=== PATIENT | female | born 1955 | race Caucasian/White ===

== ENCOUNTER 2016-07-04 03:27 | Inpatient (IN) | payer MEDICARE, OTHER ==
--- NOTE | ~2016-07-04 | CN ---
Consultation Report [facility] [address]. [address] NAME: REGLA PAVON : 57 STATUS : ADM IN [facility]#: [id number] AGE: 61 ADM/REG DATE : 07/04/16 MR#: [id number] REPORT SERV DATE: 07/07/16 DICTATED BY: LONNY MEJIA DATE: 07/06/16 REPORT STATUS : Draft TRANSCRIBED BY: MODL DATE: 07/06/16 INFECTIOUS DISEASE CONSULT DATE OF CONSULTATION: REASON FOR CONSULT: Antibiotic treatment. HISTORY OF PRESENT ILLNESS: 61 years old white lady with cardiac transplant in 2012, on Prograf, CellCept, and Bactrim who was admitted for acute onset of vomiting followed by chills, fever, and history of recurrent episodes of dry cough. In 2012, she had a cardiac transplant at [place]. It was very difficult to get her off the ventilator postoperatively. She then had an episode of aspiration after finally she was taken off the vent who ended up having a tracheostomy. Since then, she has had problems occasionally with swallowing. Initially, she also had some dysphonia. Remotely, she had one of the salivary glands removed. She stayed near [place] for several months and she was in and out of the hospital. In September 2012, six months after the transplant, she developed a "sepsis." She states that they could never figure out what caused it, but they thought it was of kidney origin. She ended up getting 6 weeks of antibiotic intravenously. Ever since, she has had recurrent episodes of dry coughing, bronchitis, and pneumonia, mostly treated by Dr. Jon Wu, her PCP. She does not follow with ID or pulmonology, and she goes to the transplant team about twice a year. Around or 28 of June, she started having dry cough again and some wheezing. She felt "bad," but she did not describe any runny nose, runny eyes, nasal congestion. For mother's day, she went to her brothers where they had dinner, spaghetti, and cake. After she got home, she started vomiting the food. She does not think she choked during that. Soon after, she started having chills and fever so she came to the hospital pretty quickly. Here, she had a lot of problems with coughing. She was thought to have a pneumoniae. WBC was high at 20. Creatinine was high at 1.5. Lactic acid was 1.1. BNP 35. Procalcitonin was not elevated. She was started on Rocephin and azithromycin. According to the patient, she did not have shortness of breath, chest pain. She does not think she aspirated. She had no abdominal pain. No constipation or diarrhea. She did notice that she voids frequently even before she came in, but she had no dysuria. Here in the hospital according to the notes she had wheezing and coughing yesterday. She was started on nebulizer treatments that helped quite a bit. She has been afebrile here. She has some tachycardia. The cough is better. She has occasional acid reflux, but she does not think that happened on Mother's Day. She did have a history of occasional episodes of choking if she does not chew and swallow carefully. Admission blood cultures were negative. Consultation Report [place] [id number] [facility] [place]. [address] NAME: REGLA PAVON : 57 STATUS : ADM IN [facility]#: [id number] AGE: 61 ADM/REG DATE : 07/04/16 MR#: [id number] REPORT SERV DATE: 07/07/16 DICTATED BY: LONNY MEJIA DATE: 07/06/16 REPORT STATUS : Draft TRANSCRIBED BY: KIRAN DATE: 07/06/16 Urinalysis not suggestive of an infection. Influenza screening negative. Today, WBC is 8, hemoglobin 11, creatinine 1.0, liver enzymes within normal limits. Yesterday, she had CT of the chest, abdomen, and pelvis without any contrast. There were no lung infiltrates. There is some renal scarring. I noticed that the whole stomach seemed to be filled with what might be food, so more solid contents. PAST MEDICAL HISTORY: As I mentioned above plus scoliosis, history of diverticular bleeding, history of cholecystectomy, hysterectomy, and salivary gland resection. FAMILY HISTORY: Heart disease and diabetes. SOCIAL HISTORY: She is . She does not work. She has a granddaughter with bronchiectasis who gets recurrent infections. She has no dogs, although her brother whom she saw on Mother's Day had two dogs. She did pet dogs, but she states she washed her hands before eating. No other sick contacts. Nobody else with vomiting or acute coughing. ALLERGIES: CIPRO CAUSED A RASH, ALSO TAPE. MEDICATIONS ON ADMISSION: Aspirin, lisinopril, magnesium, omeprazole, mycophenolate, tacrolimus, and Bactrim 1 double strength tablet every 3rd day. She has been on omeprazole since the transplant, but she does not know where she still needs it. PHYSICAL EXAMINATION: GENERAL: On exam, she is alert and awake. I have not heard her cough or wheeze while in the room with me. HEENT: Sclerae are white, a piece of darker color. No oral mucosa lesions that I can see. LUNGS: No wheezing, but I hear more of an erupt-type sound bilaterally especially in the lower lung [place]. HEART: Regular rhythm. No murmurs. ABDOMEN: Soft, nontender. SKIN: Without obvious rash. Feet without lesions. LYMPH NODES: I did not identify any preauricular, submandibular, or cervical adenopathy. ASSESSMENT AND PLAN: The patient with history of cardiac transplant on immunosuppressive medications who has a history of recurrent episodes of cough. She was admitted for dry cough of 4 to 5 days duration and then acute onset of vomiting after dinner, followed by chills and fever. She is currently afebrile. WBC which was high on admission is normal. Procalcitonin was not elevated. The cough is better with nebulizer treatments. DIFFERENTIAL DIAGNOSIS: I am concerned about possible aspiration episodes. She describes occasional swallowing difficulty since she had a tracheostomy in 2012. She does not use artificial saliva all the time. Also, I noticed on the CT scan that her stomach seem to be full with food, but I do not know how soon after she ate that the CAT scan was done. She does not describe acute acid reflux when she had a prior history of that, so this bring the question about if there is any problem with gastric emptying but she does not seem to Consultation Report [address] [place]. [address] NAME: REGLA PAVON : 57 STATUS : ADM IN [facility]#: [id number] AGE: 61 ADM/REG DATE : 07/04/16 MR#: [id number] REPORT SERV DATE: 07/07/16 DICTATED BY: LONNY MEJIA DATE: 07/06/16 REPORT STATUS : Draft TRANSCRIBED BY: KIRAN DATE: 07/06/16 describe that. Also on the differential diagnosis would be a viral infection. The bacterial bronchitis seems less likely. I discussed with the patient, and I suggested to have dental care, to use mouth moisturizer when eating. I suggested a swallow evaluation. If she has problems in the future may need to have gastric emptying evaluation. We will screen for RSV pneumococcus. She is on Rocephin, but I think if she continues to improve I would stop that. I discussed with the patient and her . She had the opportunity to ask questions. I reviewed the chart and computer records, and reviewed the CT scan. PC/MODL Lonny Mejia M.D. / [id number] CC: MD Jordi Julien M.D.
--- NOTE | ~2016-07-04 | DS ---
Discharge Summary [id number] [place]. [address] NAME: REGLA PAVON : 57 STATUS : DIS IN PAT#: [id number] AGE: 61 ADM/REG DATE : 07/04/16 MR#: [id number] REPORT SERV DATE: 07/08/16 DICTATED BY: JOJO KNIGHT DATE: 07/07/16 REPORT STATUS : Draft TRANSCRIBED BY: KIRAN DATE: 07/07/16 ADMISSION DATE: 07/04/2016 DISCHARGE DATE: 07/07/2016 CONSULTATION: 1. Infectious Disease, Dr. Lonny Bustillo. 2. Cardiology, Dr. Chacko. INVASIVE PROCEDURE: None. DISCHARGE DIAGNOSES: 1. Respiratory syncytial virus bronchitis. 2. History of cardiac transplant, on chronic immunosuppression therapy. 3. History of atrial fibrillation with remote history of cardiac ablation. 4. Steroid-induced diabetes mellitus. 5. Acute kidney injury. 6. Hypertension. DISCHARGE CONDITION: Stable. HISTORY OF PRESENT ILLNESS: For detailed HPI, please make reference to Dr. Ashu Sesay's dictation on 07/04/2016. In brief; this is a 61-year-old female with medical history of cardiac transplant in 2012 after a nonischemic cardiomyopathy with ejection fraction of 20%, on chronic immunosuppression therapy who presented to the emergency room with complaints of nausea, vomiting, cough, fever, and chills. In the ER, was found to have a temperature of 101.3, pulse of 133 beats per minute, blood pressure of 134/66, respiratory rate of 23, saturating 98% on room air. Physical exam was significant for diffuse inspiratory and expiratory wheezes. LABORATORY DATA: White blood cell count of 20.3, hemoglobin of 12, hematocrit of 37. Sodium of 139, creatinine of 1.54. Lactic acid of 1.1. Chest x-ray showed no acute cardiopulmonary process. EKG shows sinus tachycardia. An assessment of sepsis secondary to possible pneumonia was made in the ER. The patient was admitted to the Hospitalist Service for further evaluation. HOSPITAL COURSE: 1. Respiratory syncytial virus bronchitis. Given the constellation of the patient's symptoms of cough, fever, wheezing, and leukocytosis, an empiric diagnosis of sepsis was made with possible pneumonia. The patient was started on broad-spectrum antibiotics with IV ceftriaxone and azithromycin. However, the patient's procalcitonin returned less than 0.05. Chest x-ray showed no infiltrate, and a CT of the chest shows no evidence of pneumonia. Hence at this point, pneumonia as a cause of the patient's sepsis was ruled out. Infectious Disease was consulted and recommended RSV antigen test which returned back positive. A definitive diagnosis of RSV bronchitis was made. IV antibiotics were discontinued. The patient's blood cultures remained negative. The patient's white blood cell count trended down from 20,000 back to 8000 prior to Discharge Summary [address] [address] NAME: REGLA PAVON : 57 STATUS : DIS IN PAT#: [id number] AGE: 61 ADM/REG DATE : 07/04/16 MR#: [id number] REPORT SERV DATE: 07/08/16 DICTATED BY: JOJO KNIGHT DATE: 07/07/16 REPORT STATUS : Draft TRANSCRIBED BY: KIRAN DATE: 07/07/16 discharge. The patient had no further episodes of fever. The patient was discharged to continue albuterol inhaler, Tessalon Perles, and Robitussin for symptomatic relief. The patient was ready to follow up with her primary care physician within one week of discharge. 2. History of cardiac transplant, on chronic immunosuppression therapy. The patient underwent cardiac transplant in 2012 at [facility] following a diagnosis of nonischemic cardiomyopathy with an EF of 20%. The patient reports that she continues to follow up with [facility]. Local continuous mining operator is Dr. Chacko. Dr. Chacko was informed of patient's admission, and he came to the bedside to follow up the patient during the course of this admission. The patient's Prograf and mycophenolate were continued throughout the course of this admission. No chest pain. No evidence of acute decompensated heart failure. The patient remained euvolemic throughout the course of this admission. The patient was advised to follow up with Dr. Chacko within two weeks of discharge. 3. Acute kidney injury. The patient's creatinine was 1.5. Etiology due to prerenal azotemia following several episodes of nausea and vomiting prior to admission. The patient was started on gentle IV fluids. The patient's creatinine trended down back to baseline of 1.0 prior to discharge. The patient's creatinine remained stable. At the time of discharge, the patient was asked to follow up with primary care physician as an outpatient. DISCHARGE MEDICATIONS: 1. Albuterol inhaler one puff q.4 to 6 hours p.r.n. 2. Tessalon Perles 200 mg p.o. t.i.d. 3. Robitussin DM 1 tablespoon every four to six hours p.r.n. 4. Aspirin 81 mg p.o. daily. 5. Lisinopril 5 mg p.o. daily. 6. Omeprazole 20 mg p.o. daily. 7. Bactrim DS 1 tab three times a week on Monday, Monday, Monday. 8. Tacrolimus 1.5 mg p.o. daily. 9. Tacrolimus 1 mg p.o. at bedtime. 10.Mycophenolate 720 mg p.o. b.i.d. 11.Vitamin D 2000 units at bedtime. DISCHARGE ACTIVITIES: As tolerated. DISCHARGE FOLLOWUP: 1. Follow up with primary care physician within one week of discharge. 2. Follow up with cardiology, Dr. Chacko within two weeks of discharge. DISCHARGE DIET: Low-salt diet. IOO/MODL Jojo Tristan Discharge Summary [address] [address] NAME: REGLA PAVON : 57 STATUS : DIS IN PAT#: [id number] AGE: 61 ADM/REG DATE : 07/04/16 MR#: [id number] REPORT SERV DATE: 07/08/16 DICTATED BY: JOJO KNIGHT DATE: 07/07/16 REPORT STATUS : Draft TRANSCRIBED BY: MODL DATE: 07/07/16 MD Rosio / [id number] CC: Mariel Marroquin M.D. Kevin P Luce, M.D. Paul Cornea, M.D.
--- NOTE | ~2016-07-04 | HP ---
History And Physical [place] [address] [facility]. [address] NAME: REGLA PAVON : 57 STATUS : REG ER PAT#: [id number] AGE: 61 ADM/REG DATE : 07/04/16 MR#: [id number] REPORT SERV DATE: 07/04/16 DICTATED BY: JOCELINE PERALTA DATE: 07/04/16 REPORT STATUS : Draft TRANSCRIBED BY: MODAna DATE: 07/04/16 DATE OF ADMISSION: 07/04/2016 CHIEF COMPLAINT: A 61-year-old female presenting with shortness of breath and cough, history of cardiac transplant. The patient's history was obtained through careful interview with the patient and her coupled with review of [facility] medical records. The patient around 06/27/2016 or 06/28/2016 began to develop a nonproductive cough and "felt bad." She describes shortness of breath characterized by dyspnea on exertion and increasing pleuritic like chest discomfort. This is felt at the base of her lungs and in the middle of her chest, an aching quality, 4 to 5/10 severity, exacerbated by coughing. She describes fevers, chills, nausea, or vomiting. Also urinary frequency, but no dysuria. No sinus drainage. She has had a "tremendous" headache. No diarrhea. REVIEW OF SYSTEMS: Otherwise, a 14-point review of systems was obtained and was negative. PAST MEDICAL HISTORY: 1. Cardiac transplant in 2012 after a nonischemic cardiomyopathy with ejection fraction of 20% followed locally by Dr. Chacko and at [facility] by Dr. Zia Joy. 2. Levoscoliosis. 3. Atrial fibrillation, status post cardiac ablation. 4. 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 5. Diverticular bleed, seen by Dr. Jeffers, light cleaner. 6. Hypertension. ALLERGIES: CIPRO. PAST SURGICAL HISTORY: 1. Cardiac transplant in 2012. 2. Hysterectomy. 3. Cholecystectomy. 4. Cardiac ablation. 5. Salivary gland surgery. SOCIAL HISTORY: No tobacco abuse. Occasional alcohol use. She is . Has children. FAMILY HISTORY: Mother and father both with heart disease. CURRENT MEDICATIONS: Include aspirin 81 mg p.o. daily, lisinopril 5 mg p.o. daily, magnesium, Prilosec 20 mg p.o. daily, Bactrim double strength p.o. every third day, Prograf daily, and CellCept p.o. b.i.d. History And Physical [address] [address] NAME: REGLA PAVON : 57 STATUS : REG ER PAT#: [id number] AGE: 61 ADM/REG DATE : 07/04/16 MR#: [id number] REPORT SERV DATE: 07/04/16 DICTATED BY: JOCELINE PERALTA DATE: 07/04/16 REPORT STATUS : Draft TRANSCRIBED BY: KIRAN DATE: 07/04/16 PHYSICAL EXAMINATION: VITAL SIGNS: Temperature 101.3, pulse 133, blood pressure 134/66, respiratory rate 23, and O2 saturation 98% on room air. GENERAL: An ill-appearing female, no evidence of acute distress though. HEENT: Pupils equal, round, and reactive to light. No conjunctival pallor. No scleral icterus. Nares are patent. Oropharynx is clear of obstruction. Dry mucous membranes. NECK: Trachea midline. No thyromegaly. LYMPH: No cervical lymphadenopathy. No supraclavicular lymphadenopathy. RESPIRATORY: The patient does have diminished breath sounds at the base of lungs. I also appreciate bilateral lower lung egophony. The left lung seems more pronounced than the right. There are scattered rhonchi but no wheezes. The patient has a labored respiratory effort. CARDIOVASCULAR: Tachycardic, regular rhythm. No murmurs, rubs, or gallops. No extremity edema is appreciated. ABDOMEN: Soft, nontender, nondistended. Normal bowel sounds auscultated throughout. No hepatosplenomegaly. DERMATOLOGICAL: Warm and dry extremities. No pallor. No cyanosis. PSYCHIATRIC: Normal affect. Good mood. Alert and oriented x3. LABORATORY DATA: White blood cell count 20.3, hemoglobin 12, hematocrit 37, and platelets 336. Sodium 139, potassium 3.8, chloride 103, bicarb 25, BUN 31, creatinine 1.54, glucose 183. Lactic acid 1.1. STUDIES: 1. Chest x-ray by my own evaluation shows no acute cardiopulmonary process. 2. EKG by my own evaluation shows sinus tachycardia, left atrial abnormality. ASSESSMENT AND PLAN: 1. Sepsis with white blood cell count of 20.3, tachycardia, tachypnea, and fever of 101.3. Check blood cultures. Place on IV antibiotics. 2. Pneumonia by exam and history but no clear evidence by chest x-ray (?). Check blood cultures. Place on appropriate IV antibiotics. 3. Cardiac transplant on immunosuppression, followed by Dr. Zia Joy at [place]. We did contact him, and he was aware of the case and felt it was safe and acceptable to begin treatment here, and if any complications arise to contact further. His phone number is [phone], fax number is [phone]. 4. Renal insufficiency. Place on IV fluids. 5. Hyperglycemia. Check hemoglobin A1c. Place on sliding scale insulin for now. ALIVIA/KIRAN Joceline Peralta M.D. History And Physical [address] [address] NAME: REGLA PAVON : 57 STATUS : REG ER PAT#: [id number] AGE: 61 ADM/REG DATE : 07/04/16 MR#: [id number] REPORT SERV DATE: 07/04/16 DICTATED BY: JOCELINE PERALTA DATE: 07/04/16 REPORT STATUS : Draft TRANSCRIBED BY: KIRAN DATE: 07/04/16 / [id number] CC: Mariel Rascon M.D.
[2016-07-04 02:02] LABS: ASCORBIC ACID (UR NOT ORDER) NEG (NEG); BILIRUBIN, URINE NEGATIVE (NEG); ER URINALYSIS TAT 0 Hrs 00 Mins; KETONE, URINE NEGATIVE (NEG); LEUKOCYTE ESTERASE(NOT OR TRACE (NEG); NITRITE (URINE) NEG (NEG); WBC (NOT ORDERED) (RFLEX) 2 (0-5)
[2016-07-04 02:48] LABS: BASOPHILS 0.2 %; BASOPHILS ABSOLUTE 0.04 10/3/uL (0.0-0.16); EOSINOPHILS 0.4 %; EOSINOPHILS ABSOLUTE 0.08 10/3/uL (0.0-0.53); HEMATOCRIT 37.3 % (36.0-48.0); HEMOGLOBIN 12.4 g/dL (12.0-16.0); IMMATURE GRANULOCYTES 0.4 %; IMMATURE GRANULOCYTES ABSOLUTE 0.08 10/3/uL (0.0-0.11); LYMPHOCYTES ABSOLUTE 1.82 10/3/uL (0.67-4.30); MEAN CORPUS HGB CONC 33.2 g/dL (32.0-36.0); MEAN CORPUSCULAR HEMOGLOB 29.3 pg (26.0-34.0); MEAN CORPUSCULAR VOLUME 88.2 fL (80-100); MEAN PLATELET VOLUME 9.3 fL (9.2-13.0); MONOCYTES 6.2 %; MONOCYTES ABSOLUTE 1.25 10/3/uL (0.21-1.20); NEUTROPHILS 83.8 %; NEUTROPHILS ABSOLUTE 17.04 10/3/uL (2.02-8.40); PLATELET COUNT 336 10/3/uL (150-400); RBC DISTRIBUTION WIDTH 13.8 % (12.0-16.0); RED CELL COUNT 4.23 10/6/uL (4.0-5.6)
[2016-07-04 02:53] LABS: ER CBC TAT 0 Hrs 10 Mins; MANUAL DIFF NO %; WHITE BLOOD CELLS 20.3 10/3/uL (4.5-10.5)
[2016-07-04 03:12] LABS: BAND NEUTROPHILS 2 %; EOSINOPHILS 1 %; ER DIFF TAT 0 Hrs 29 Mins; LYMPHOCYTES 1 %; MONOCYTES 11 %; MONOCYTES ABSOLUTE (CALC) 2.23 10/3/uL (0.21-1.20); NEUTROPHILS ABSOLUTE (CALC) 17.66 10/3/uL (2.02-8.40); PLATELET ESTIMATE ADQ (ADEQUATE); RBC MORPHOLOGY NORM (NORMAL); SEGMENTED NEUTROPHIL (0) 85 %; TOTAL NUCLEATED CELLS 100
[2016-07-04 03:13] LABS: BUN (BLOOD UREA NITROGEN) 31 MG/DL (6-23); CHLORIDE, SERUM 103 MMOL/L (96-112); CREATININE 1.54 MG/DL (0.55-1.02); GFR AFRICAN AMERICAN 42 ML/MIN (>=60); GFR NON AFRICAN AMERICAN 36 ML/MIN (>=60); POTASSIUM, SERUM 3.8 MMOL/L (3.5-5.3); SODIUM, SERUM 139 MMOL/L (135-148)
[2016-07-04 03:14] LABS: CO2 (CARBON DIOXIDE) 25 MMOL/L (24-34); DIRECT BILIRUBIN < 0.1 MG/DL (0.0-0.4); GLUCOSE, SERUM 183 MG/DL (60-99); INDIRECT BILIRUBIN(NOT ORDER) 0.3 MG/DL (0.1-0.9); TOTAL BILIRUBIN 0.4 MG/DL (0-1.2)
[~2016-07-04 03:27] MED LIST: AMB10 PO; ASA5GR PO; ASAB PO; BETAP120 PO; BETAPACE160 MG PO; BIOTENE DRY PO; C1 PO; CELEXA20 PO; CELEXA40 MG PO; COREG12 PO; COUMADIN7.5 MG PO; CRESTOR40 MG PO; DARVOCET PO; DIGITEK0.125 MG PO; DIGITEK0.25 MG PO; FERROUS SULF325 M1 PO; KLOR-CON 1010 MEQ PO; L40 PO; L80 PO; LAN125 PO; LAN25 PO; MAGOX4 PO; MAGOXIDE PO; MULTIVITAMI1 PO; MYCOPHENOLIC ACID PO; NEUR300 PO; P125 PO; PLAVIX PO; PRILO PO; PRIN10 PO; PROGRAF1 PO; ROXICODONE15 MG PO; ZESTRIL10 MG PO; ZESTRIL20 MG PO
[2016-07-04 04:28] LABS: ALKALINE PHOSPHATASE 136 U/L (45-117); SGOT(AST) 5 U/L (5-40); TOTAL PROTEIN 7.2 G/DL (6.0-8.5)
[2016-07-04 04:29] LABS: SGPT(ALT) 17 U/L (5-65)
[2016-07-04 04:33] LABS: TROPONIN I <0.02 NG/ML (<0.05)
[2016-07-04] MEDS ORDERED: PRIN5 PO ×2 (05:15→07:36)
[2016-07-04] MEDS ORDERED: BACTRIM DS1 TAB PO (05:16)
[2016-07-04] MEDS ORDERED: ASAB PO ×2 (05:16→07:36)
[2016-07-04] MEDS ORDERED: MAGOX4 PO ×2 (05:17→07:36)
[2016-07-04] MEDS ORDERED: MYCOPHENOLIC ACID PO (05:19)
[2016-07-04] MEDS ORDERED: PRILO PO ×2 (05:20→07:36)
[2016-07-04] MEDS ORDERED: PROGRAF5 PO ×2 (05:21→05:22)
[2016-07-04] MEDS ORDERED: BACDS PO (07:37)
[2016-07-04] MEDS ORDERED: PROGRAF0.5 PO (07:37)
[2016-07-04] MEDS ORDERED: PROGRAF1 PO (07:37)
[2016-07-04] MEDS ORDERED: HARD NAILS PO (07:39)
[2016-07-04] MEDS ORDERED: MYFORTIC360 MG PO (07:39)
[2016-07-04] MEDS ORDERED: VITAMIN D2000 UNIT PO (07:39)
[2016-07-04 15:22] LABS: BASOPHILS 0.2 %; BASOPHILS ABSOLUTE 0.03 10/3/uL (0.0-0.16); EOSINOPHILS 0.4 %; EOSINOPHILS ABSOLUTE 0.06 10/3/uL (0.0-0.53); HEMOGLOBIN 11.5 g/dL (12.0-16.0); IMMATURE GRANULOCYTES 0.3 %; IMMATURE GRANULOCYTES ABSOLUTE 0.05 10/3/uL (0.0-0.11); LYMPHOCYTES 7.5 %; LYMPHOCYTES ABSOLUTE 1.12 10/3/uL (0.67-4.30); MEAN CORPUS HGB CONC 32.9 g/dL (32.0-36.0); MEAN CORPUSCULAR HEMOGLOB 28.9 pg (26.0-34.0); MEAN CORPUSCULAR VOLUME 87.9 fL (80-100); MEAN PLATELET VOLUME 8.9 fL (9.2-13.0); MONOCYTES 9.2 %; MONOCYTES ABSOLUTE 1.37 10/3/uL (0.21-1.20); NEUTROPHILS 82.4 %; NEUTROPHILS ABSOLUTE 12.23 10/3/uL (2.02-8.40); PLATELET COUNT 280 10/3/uL (150-400); RBC DISTRIBUTION WIDTH 13.9 % (12.0-16.0); RED CELL COUNT 3.98 10/6/uL (4.0-5.6); WHITE BLOOD CELLS 14.9 10/3/uL (4.5-10.5)
[2016-07-04 15:23] LABS: MANUAL DIFF NO %
[2016-07-04 15:28] LABS: INTERNATIONAL NORMAL RATI 1.1 UNITS (-)
[2016-07-04 15:29] LABS: PARTIAL THROMBO TIME 33.5 SEC (22.5-37.2)
[2016-07-04 15:30] LABS: PROTIME (NOT ORD) 14.4 SEC (12.0-14.5)
[2016-07-04 15:44] LABS: ALBUMIN 3.5 G/DL (3.5-5.0); CALCIUM, SERUM 8.8 MG/DL (8.5-10.4); CHLORIDE, SERUM 110 MMOL/L (96-112); CO2 (CARBON DIOXIDE) 25 MMOL/L (24-34); CREATININE 1.07 MG/DL (0.55-1.02); GFR AFRICAN AMERICAN 65 ML/MIN (>=60); GFR NON AFRICAN AMERICAN 56 ML/MIN (>=60); POTASSIUM, SERUM 4.4 MMOL/L (3.5-5.3); SGOT(AST) 6 U/L (5-40); SGPT(ALT) 15 U/L (5-65); SODIUM, SERUM 142 MMOL/L (135-148); TOTAL BILIRUBIN 0.4 MG/DL (0-1.2); TOTAL PROTEIN 6.5 G/DL (6.0-8.5); TROPONIN I <0.02 NG/ML (<0.05)
[2016-07-04 15:47] LABS: A/G RATIO 1.2 (0.7-1.9); ALKALINE PHOSPHATASE 107 U/L (45-117); BUN (BLOOD UREA NITROGEN) 26 MG/DL (6-23); GLUCOSE, SERUM 93 MG/DL (60-99)
[2016-07-04 16:03] LABS: PROCALCITONIN <0.05 ng/mL (<0.5)
[2016-07-04 16:04] LABS: B NATRIURETIC PEPTIDE (BNP) 35.3 PG/ML (< 100.0)
[2016-07-05 07:14] LABS: GLYCOHEMOGLOBIN (HbA1c) 5.5 % (4.7-6.1)
[2016-07-05 19:57] LABS: ASCORBIC ACID (UR NOT ORDER) NEG (NEG); BILIRUBIN, URINE NEGATIVE (NEG); KETONE, URINE NEGATIVE (NEG); LEUKOCYTE ESTERASE(NOT OR NEG (NEG); WBC (NOT ORDERED) (RFLEX) 1 (0-5)
[2016-07-05 23:05] LABS: INFLUENZA A SCREEN NEGATIVE (NEGATIVE); INFLUENZA B SCREEN NEGATIVE (NEGATIVE)
[2016-07-06 05:17] LABS: BASOPHILS 0.4 %; BASOPHILS ABSOLUTE 0.03 10/3/uL (0.0-0.16); EOSINOPHILS 1.1 %; EOSINOPHILS ABSOLUTE 0.09 10/3/uL (0.0-0.53); HEMATOCRIT 34.8 % (36.0-48.0); HEMOGLOBIN 11.4 g/dL (12.0-16.0); IMMATURE GRANULOCYTES 0.4 %; IMMATURE GRANULOCYTES ABSOLUTE 0.03 10/3/uL (0.0-0.11); LYMPHOCYTES 16.3 %; LYMPHOCYTES ABSOLUTE 1.32 10/3/uL (0.67-4.30); MEAN CORPUS HGB CONC 32.8 g/dL (32.0-36.0); MEAN CORPUSCULAR HEMOGLOB 28.8 pg (26.0-34.0); MEAN CORPUSCULAR VOLUME 87.9 fL (80-100); MEAN PLATELET VOLUME 8.6 fL (9.2-13.0); MONOCYTES 7.5 %; MONOCYTES ABSOLUTE 0.61 10/3/uL (0.21-1.20); NEUTROPHILS 74.3 %; NEUTROPHILS ABSOLUTE 6.01 10/3/uL (2.02-8.40); PLATELET COUNT 288 10/3/uL (150-400); RBC DISTRIBUTION WIDTH 13.7 % (12.0-16.0); RED CELL COUNT 3.96 10/6/uL (4.0-5.6)
[2016-07-06 05:22] LABS: MANUAL DIFF NO %; WHITE BLOOD CELLS 8.1 10/3/uL (4.5-10.5)
[2016-07-06 05:38] LABS: A/G RATIO 1.2 (0.7-1.9); ALBUMIN 3.5 G/DL (3.5-5.0); ALKALINE PHOSPHATASE 96 U/L (45-117); BUN (BLOOD UREA NITROGEN) 23 MG/DL (6-23); CALCIUM, SERUM 9.5 MG/DL (8.5-10.4); CHLORIDE, SERUM 108 MMOL/L (96-112); CO2 (CARBON DIOXIDE) 28 MMOL/L (24-34); CREATININE 1.03 MG/DL (0.55-1.02); GFR AFRICAN AMERICAN 68 ML/MIN (>=60); GFR NON AFRICAN AMERICAN 59 ML/MIN (>=60); GLOBULIN 2.9 G/DL (2.5-4.1); PHOSPHORUS, SERUM 3.3 MG/DL (2.5-4.5); POTASSIUM, SERUM 4.4 MMOL/L (3.5-5.3); SGPT(ALT) 15 U/L (5-65); SODIUM, SERUM 142 MMOL/L (135-148); TOTAL BILIRUBIN 0.5 MG/DL (0-1.2); TOTAL PROTEIN 6.4 G/DL (6.0-8.5)
[2016-07-06 05:40] LABS: GLUCOSE, SERUM 116 MG/DL (60-99); SGOT(AST) < 3 U/L (5-40)
[2016-07-07 06:45] LABS: BASOPHILS 0.4 %; BASOPHILS ABSOLUTE 0.03 10/3/uL (0.0-0.16); EOSINOPHILS 0.6 %; EOSINOPHILS ABSOLUTE 0.05 10/3/uL (0.0-0.53); HEMATOCRIT 32.5 % (36.0-48.0); HEMOGLOBIN 10.7 g/dL (12.0-16.0); IMMATURE GRANULOCYTES 0.4 %; IMMATURE GRANULOCYTES ABSOLUTE 0.03 10/3/uL (0.0-0.11); LYMPHOCYTES ABSOLUTE 1.08 10/3/uL (0.67-4.30); MEAN CORPUS HGB CONC 32.9 g/dL (32.0-36.0); MEAN CORPUSCULAR HEMOGLOB 28.8 pg (26.0-34.0); MEAN CORPUSCULAR VOLUME 87.6 fL (80-100); MEAN PLATELET VOLUME 9.1 fL (9.2-13.0); MONOCYTES 8.1 %; MONOCYTES ABSOLUTE 0.67 10/3/uL (0.21-1.20); NEUTROPHILS 77.5 %; NEUTROPHILS ABSOLUTE 6.45 10/3/uL (2.02-8.40); PLATELET COUNT 294 10/3/uL (150-400); RBC DISTRIBUTION WIDTH 13.9 % (12.0-16.0); RED CELL COUNT 3.71 10/6/uL (4.0-5.6); WHITE BLOOD CELLS 8.3 10/3/uL (4.5-10.5)
[2016-07-07 06:50] LABS: MANUAL DIFF NO %
[2016-07-07 07:02] LABS: ALBUMIN 3.4 G/DL (3.5-5.0); CHLORIDE, SERUM 107 MMOL/L (96-112); CO2 (CARBON DIOXIDE) 25 MMOL/L (24-34); CREATININE 1.28 MG/DL (0.55-1.02); GFR AFRICAN AMERICAN 53 ML/MIN (>=60); GFR NON AFRICAN AMERICAN 45 ML/MIN (>=60); GLUCOSE, SERUM 120 MG/DL (60-99); PHOSPHORUS, SERUM 4.1 MG/DL (2.5-4.5); POTASSIUM, SERUM 4.2 MMOL/L (3.5-5.3); SODIUM, SERUM 143 MMOL/L (135-148)
[2016-07-07 07:05] LABS: BUN (BLOOD UREA NITROGEN) 28 MG/DL (6-23)
[2016-07-07] MEDS ORDERED: TESSALON200 MG PO (14:32)
[2016-07-07] MEDS ORDERED: GGDM5ML PO (14:35)
[2016-07-07] MEDS ORDERED: PROVHFA INH (14:36)
== END 2016-07-07 16:26 | disposition home or self-care (01) | DRG 872 ==
LOC: ER 03:27 → ER/OF 06:28 → 6NO 06:50
PROVIDERS: Hospitalist; Internal Medicine; Specialist
DX: A41.89 Other specified sepsis (principal); N17.9 Acute kidney failure, unspecified; Z94.1 Heart transplant status; J20.5 Acute bronchitis due to respiratory syncytial virus; E09.9 Drug or chemical induced diabetes mellitus without complications; T38.0X5A Adverse effect of glucocorticoids and synthetic analogues, initial encounter; K21.9 Gastro-esophageal reflux disease without esophagitis; R49.0 Dysphonia; R13.10 Dysphagia, unspecified; Z79.899 Other long term (current) drug therapy; Z90.49 Acquired absence of other specified parts of digestive tract; Z90.710 Acquired absence of both cervix and uterus; Z88.1 Allergy status to other antibiotic agents; Z91.048 Other nonmedicinal substance allergy status; Z79.82 Long term (current) use of aspirin; Z87.01 Personal history of pneumonia (recurrent)
CPT/HCPCS: 71010; 71250; 74176; 80048; 80053; 80069; 80076; 81001; 82247; 82248; 82962; 83036; 83605; 83615; 83735; 83880; 84100; 84145; 84443; 84484; 85025; 85610; 85730; 87040; 87449; 87804; 87807; 92610-GN; 93005; 94640; 96374; 99285; A9270-GY; G8996-CI-GN; G8997-CI-GN; G8998-CI-GN; J0456; J7507